=== PATIENT | female | born 2005 | race Caucasian/White ===

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

== ENCOUNTER 2023-02-02 13:28 | Inpatient (IN) | payer MEDICAID ==
[~2023-02-02] VITALS: Ht 162.6 cm; Wt 72.6 kg
[~2023-02-02 13:28] MED LIST changes: +LEVO-481 PO; +PANT40EC PO
[2023-02-02 13:34] VITALS: BP 91/60
--- NOTE | 2023-02-02 14:20 | NUR ---
PT WHEELCHAIR ASSIST TO BED 01
--- NOTE | 2023-02-02 14:27 | NUR ---
Patient being evaluated by physician at bedside.
--- NOTE | 2023-02-02 14:38 | NUR ---
REPORTS VOMITING BLOOD, EMESIS ON ARRIVAL WAS JUST CLEAR BLUISH LIQUID THAT PT DRANK
[2023-02-02] MEDS ORDERED: METOCLOPRAMIDE 10 MG/2 ML INJ VIAL IVP ONE (14:40)
[2023-02-02] MEDS ORDERED: NACL 0.9% 1,000 ML IV ONE (14:40)
--- NOTE | 2023-02-02 14:45 | NUR ---
Patient ambulated to restroom with steady gait.
--- NOTE | 2023-02-02 14:49 | NUR ---
IV started, blood work obtained, handed to lab at bedside.
[2023-02-02 14:56] LABS: HEMOGLOBIN 12.4 g/dL (12.0-16.0); MEAN CORPUSCULAR HEMOGLOBIN 30 pg (27-31); MEAN CORPUSCULAR HGB CONC 33 g/dL (33-37); MEAN CORPUSCULAR VOLUME 89.1 fL (80-94); PLATELET COUNT (AUTO) 310 K/uL (140-450); RED BLOOD CELL COUNT(AUTO) 4.15 MIL/uL (4.20-5.40); RED CELL DISTRIBUTION WIDTH 13.3 % (11.6-13.7); WHITE BLOOD COUNT (AUTO) 22.2 K/uL (4.5-11.0)
[2023-02-02 15:14] LABS: LYMPHOCYTES % (MANUAL) 2 % (20-46); MONOCYTES % (MANUAL) 3 % (5-12)
[2023-02-02 15:19] LABS: ALBUMIN 4.2 g/dL (3.4-5.0); ANION GAP 17.8 (8-16); ASPARTATE AMINOTRANSFERASE 17 U/L (15-37); CARBON DIOXIDE 21.2 mmol/L (21-32); CHLORIDE 104 mmol/L (98-107); CREATININE 0.7 mg/dL (0.6-1.3); GFR ARICAN-AMERICAN 139 mL/min (>90); GLUCOSE 158 mg/dL (74-106); LIPASE 35 U/L (73-393); SODIUM SERUM 140 mmol/L (136-145); TOTAL BILIRUBIN 0.5 mg/dL (0.0-1.0); UREA NITROGEN, BLOOD 10 mg/dL (7-18)
[2023-02-02] MEDS ORDERED: ONDANSETRON 4 MG/2 ML VIAL IVP ONE (15:40)
--- NOTE | 2023-02-02 16:05 | NUR ---
AMBULATES TO BR WITH STEADY GAIT, "ZOFRAN MIGHT NOT HELP"
[2023-02-02] MEDS ORDERED: HALOPERIDOL IM 5 MG/ML VIAL IVP ONE (16:25)
[2023-02-02 16:34] LABS: APPEARANCE,URINE CLEAR (CLEAR); COLOR,URINE YELLOW (YELLOW); PH,URINE 8.5 (5.0-9.0)
[2023-02-02 16:35] LABS: BILIRUBIN,URINE NEGATIVE (NEGATIVE); BLOOD, URINE NEGATIVE (NEGATIVE); UGLUCOSE NEGATIVE (NEGATIVE)
[2023-02-02 16:36] LABS: LEUKOCYTE ESTERASE ,URINE NEGATIVE (NEGATIVE); NITRITE, URINE NEGATIVE (NEGATIVE)
--- NOTE | 2023-02-02 16:51 | NUR ---
ADMITS TO SWALLOWING SOME WATER WHEN RINSING MOUTH IN THE BATHROOM. 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
--- NOTE | 2023-02-02 17:21 | NUR ---
Dr. Yip re-evaluating patient at bedside.
--- NOTE | 2023-02-02 17:37 | NUR ---
Med rec complete
[2023-02-02] MEDS ORDERED: DEXT 5% /NACL 0.9% 1,000 ML IV ONE (18:25)
--- NOTE | 2023-02-02 19:20 | NUR ---
Report given to PATRICK Robertson for transfer of care.
[2023-02-02] MEDS ORDERED: DOCUSATE SODIUM 100 MG GELCAP PO PRN (20:10)
[2023-02-02] MEDS ORDERED: DEXT 5% /NACL 0.9% 1,000 ML IV SCH (20:10)
[2023-02-02] MEDS ORDERED: ONDANSETRON 4 MG/2 ML VIAL IM/IVP PRN (20:10)
[2023-02-02] MEDS ORDERED: guaiFENesin DM 200/20 MG-10 ML 10 ML UDC PO PRN (20:10)
[2023-02-02] MEDS ORDERED: ZOLPIDEM 5 MG TAB PO PRN (20:10)
[2023-02-02] MEDS ORDERED: HYDROcodone/APAP 7.5/325 MG 1 TAB PO PRN (20:10)
[2023-02-02] MEDS ORDERED: ACETAMINOPHEN 325 MG TAB PO PRN (20:10)
[2023-02-02] MEDS ORDERED: POTASSIUM CHLORIDE 40 MEQ, LIDOCAINE MPF 1% 25 MG in NACL 0.9% 250 ML IV PRN (20:15)
[2023-02-02 20:39] LABS: PROTHROMBIN TIME 11.2 secs (10.8-13.4)
[2023-02-02 20:49] LABS: CHOL/HDL RATIO 2.6 (1-4.5); FREE T4 (FREE THYROXINE) 1.22 ng/dL (0.76-1.46); MAGNESIUM 1.6 mg/dL (1.8-2.4); PHOSPHORUS 1.4 mg/dL (2.5-4.9); THYROID STIMULATING HORMONE 1.25 uIU/mL (0.34-3.74)
--- NOTE | 2023-02-02 21:08 | NUR ---
pt to CT via adi
--- NOTE | 2023-02-02 21:20 | NUR ---
Patient will be admitted to care of Janina. Admited to Med Surg. Will go to [id number]. Belongings list completed. Report to Renetta GOMEZ.
[2023-02-02 21:30] VITALS: BP 125/88
--- NOTE | 2023-02-02 21:30 | NUR ---
RECEIVED PT IN BED FROM ER AWAKE, ALERT AND ORIENTED X 4. DENIES PAIN AT THIS TIME. NO NAUSEA NOR VOMITING NOTED AT THIS TIME. IVF INFUSING WELL ORDERED. SKIN WARM AND DRY TO TOUCH. BED IN THE LOWEST AND LOCKED POSITION FOR SAFETY, CALL LIGHT GIVEN TO PT WITH INSTRUCTION ON USE, RETURN DEMONSTRATION DONE.
[2023-02-02] MEDS: POTASSIUM CHLORIDE 10 MEQ TABER PO PRN (21:51)
[2023-02-03 04:00] VITALS: BP 98/54
[2023-02-03 05:24] LABS: BASOPHILS % (AUTO) 0.2 % (0.0-2.0); HEMATOCRIT 33.6 % (36-48); HEMOGLOBIN 11.1 g/dL (12.0-16.0); LYMPHOCYTES % (AUTO) 9.7 % (20.5-51.1); MEAN CORPUSCULAR HEMOGLOBIN 30 pg (27-31); MEAN CORPUSCULAR HGB CONC 33 g/dL (33-37); MEAN CORPUSCULAR VOLUME 89.7 fL (80-94); MONOCYTES # (AUTO) 1.8 K/uL (0.8-1.0); MONOCYTES % (AUTO) 8.9 % (1.7-9.3); NEUTROPHILS # (AUTO) 16.5 K/uL (1.8-7.7); NEUTROPHILS % (AUTO) 81.2 % (42.2-75.2); PLATELET COUNT (AUTO) 261 K/uL (140-450); RED BLOOD CELL COUNT(AUTO) 3.74 MIL/uL (4.20-5.40); RED CELL DISTRIBUTION WIDTH 13.6 % (11.6-13.7); WHITE BLOOD COUNT (AUTO) 20.3 K/uL (4.5-11.0)
[2023-02-03 05:36] LABS: ANION GAP 11.5 (8-16); CREATININE 0.5 mg/dL (0.6-1.3); POTASSIUM 3.5 mmol/L (3.5-5.1)
--- NOTE | 2023-02-03 08:00 | NUR ---
received patient resting in bed not thierry nay form of distress, denies any nausea and vomiting at this time, states she feels a lot better, shift assessment done and documented, plan of care discussed, will continue to monitor.
--- NOTE | 2023-02-03 08:51 | NUR ---
PATIENT HAS BEEN SCREENED AND CATEGORIZED HIGH NUTRITION RISK. PATIENT WILL BE SEEN WITHIN 1-2 DAYS OF ADMISSION. 02/03/23-02/04/23 [facility] REFERRAL RECEIVED FOR VOMITING X3 DAYS ON 02/03/[address]
[2023-02-03] MEDS: PANTOPRAZOLE 40 MG TABEC PO SCH (09:32)
--- NOTE | 2023-02-03 13:06 | NUR ---
02/03/23 RD INITIAL ASSESSMENT COMPLETED PLEASE REFER TO NUTRITION ASSESSMENT UNDER CARE ACTIVITY FOR ESTIMATED NUTRITIONAL NEEDS. 1. CONTINUE NPO DIET TOLERATED AND ONCE MEDICALLY APPROPRIATE ADVANCE TO CLEAR LIQUID DIET. 2. RD TO FOLLOW-UP 3-5 DAYS, MODERATE RISK SOILA MONTGOMERY, RD
[2023-02-03 16:00] VITALS: BP 96/60
[2023-02-03 17:54] LABS: BARBITURATE, URINE NEGATIVE ng/ml (NEG <=200); BENZODIAZEPINE, URINE NEGATIVE ng/mL (NEG <=200); CANNABINOID, URINE POSITIVE ng/mL (NEG <=50); COCAINE, URINE NEGATIVE ng/mL (NEG <=300); OPIATE, URINE POSITIVE ng/mL (NEG <=2000); PHENCYCLIDINE SCREEN,URINE NEGATIVE ng/mL (NEG <=25)
--- NOTE | 2023-02-03 19:30 | NUR ---
RECEIVED REPORT FROM DAY SHIFT RN FOR CONTINUITY OF CARE. PT IS AWAKE AND ALERT. RESTING IN BED ON RA. PT HAS LEFT AC 20 GAUGE SALINE LOCK. POC DISCUSSED. WILL CONTINUE TO MONITOR THE PT.
[2023-02-03 20:00] VITALS: BP 100/70
--- NOTE | 2023-02-04 | NUR ---
CHECKED ON PT. PT IS AWAKE. NOT IN ANY DISTRESS. PT DENIES ANY NAUSEA/VOMITING. NO COMPLAINS FROM THE PT.
[2023-02-04 04:00] VITALS: BP 90/60
--- NOTE | 2023-02-04 04:05 | NUR ---
VITAL SIGNS TAKEN AND STABLE. PT DENIES ANY PAIN. PT HAS NOT HAD ANY NAUSEA VOMITING DURING SHIFT.
[2023-02-04 05:34] LABS: BASOPHILS # (AUTO) 0.1 K/uL (0.00-0.22); BASOPHILS % (AUTO) 0.5 % (0.0-2.0); EOSINOPHILS # (AUTO) 0.1 K/uL (0-0.4); EOSINOPHILS % (AUTO) 0.9 % (0.0-4.0); HEMATOCRIT 34.5 % (36-48); HEMOGLOBIN 11.5 g/dL (12.0-16.0); LYMPHOCYTES # (AUTO) 3.3 K/uL (2.5-16.5); LYMPHOCYTES % (AUTO) 28.8 % (20.5-51.1); MEAN CORPUSCULAR HEMOGLOBIN 30 pg (27-31); MEAN CORPUSCULAR HGB CONC 33 g/dL (33-37); MEAN CORPUSCULAR VOLUME 90.3 fL (80-94); MONOCYTES # (AUTO) 1.1 K/uL (0.8-1.0); MONOCYTES % (AUTO) 9.7 % (1.7-9.3); NEUTROPHILS # (AUTO) 6.9 K/uL (1.8-7.7); NEUTROPHILS % (AUTO) 60.1 % (42.2-75.2); PLATELET COUNT (AUTO) 246 K/uL (140-450); RED BLOOD CELL COUNT(AUTO) 3.83 MIL/uL (4.20-5.40); RED CELL DISTRIBUTION WIDTH 13.5 % (11.6-13.7); WHITE BLOOD COUNT (AUTO) 11.6 K/uL (4.5-11.0)
[2023-02-04 06:05] LABS: ANION GAP 14.8 (8-16); CARBON DIOXIDE 23.5 mmol/L (21-32); CREATININE 0.6 mg/dL (0.6-1.3); POTASSIUM 3.3 mmol/L (3.5-5.1)
[2023-02-04 07:08] LABS: T4 (THYROXINE) 9.6 ug/dL (4.5-12.0)
--- NOTE | 2023-02-04 07:10 | NUR ---
ENDORSED PT TO DAY SHIFT RN FOR CONTINUITY OF CARE. PT IS STABLE.
[2023-02-04] MEDS: PANTOPRAZOLE 40 MG TABEC PO SCH (09:15)
[2023-02-04] MEDS: POTASSIUM CHLORIDE 10 MEQ TABER PO PRN (09:15)
--- NOTE | 2023-02-04 12:42 | NUR ---
PATIENT DISCHARGED HOME ACCOMPANIED BY FAMILY. STABLE UPON DISCHARGED.
== END 2023-02-04 12:37 | disposition home or self-care (01) | DRG 249 ==
LOC: MED 13:28 → MMU 19:19 → MTU 20:13
PROVIDERS: ADMIT Family Medicine; ATTEND Family Medicine
DX: K52.9 Noninfective gastroenteritis and colitis, unspecified (principal); G93.41 Metabolic encephalopathy; R65.10 Systemic inflammatory response syndrome (SIRS) of non-infectious origin without acute organ dysfunction; E83.39 Other disorders of phosphorus metabolism; R56.9 Unspecified convulsions; E87.6 Hypokalemia; E83.42 Hypomagnesemia; D64.9 Anemia, unspecified; F12.90 Cannabis use, unspecified, uncomplicated; Z20.822 Contact with and (suspected) exposure to COVID-19
CPT/HCPCS: 36415; 71045; 80048; 80053; 80305; 81003; 82150; 83036; 83690; 83735; 83880; 84100; 84436; 84439; 84443; 84479; 84484; 85025; 85610; 85730; 87081; 96361; 96374; 96375; 99285; J1630; J2405; J2765; Q0092

== ENCOUNTER 2023-03-09 09:20 | Emergency (ER) | payer MEDICAID ==
[~2023-03-09] VITALS: Ht 167.6 cm; Wt 72.6 kg
[~2023-03-09 09:20] MED LIST changes: -BEN10 PO; -LEVO-481 PO; -MAG-27 PO
[2023-03-09 09:26] VITALS: BP 123/87; PULSE 89; RESP 20; TEMP 98.7; O2SAT 95
--- NOTE | 2023-03-09 09:35 | NUR ---
PT AMBULATED TO BED 12
[2023-03-09] MEDS ORDERED: METOCLOPRAMIDE 10 MG/2 ML INJ VIAL IVP ONE (09:40)
[2023-03-09] MEDS ORDERED: diphenhydrAMINE 50 MG/ML VIAL IVP ONE (09:40)
[2023-03-09] MEDS ORDERED: NACL 0.9% 1,000 ML IV SCH (09:40)
--- NOTE | 2023-03-09 09:40 | NUR ---
AT THE BEDSIDE
[2023-03-09] MEDS ORDERED: LORazepam 2 MG/ML VIAL IVP ONE (09:45)
[2023-03-09] MEDS ORDERED: LORazepam 2 MG/ML VIAL ONE (09:46)
--- NOTE | 2023-03-09 09:54 | NUR ---
PT HAD SEIZURE-LIKE EPISODE, PT WAS UNRESPONSIVE FOR APPROX 15-20 SECS AND HAD JERKING MOVEMENTS. SPO2 WAS 96% ON ROOM AIR. MD AT THE BEDSIDE, PT MEDICATED PER MD ORDERS.
[2023-03-09] MEDS ORDERED: HALOPERIDOL IM 5 MG/ML VIAL IVP ONE (09:55)
--- NOTE | 2023-03-09 10:03 | NUR ---
X-Ray at bedside.
--- NOTE | 2023-03-09 10:03 | NUR ---
Note yesenia in [facility] - 03/09/23 at 1003 by [id number] Ultrasound at bedside. Addendum: 03/09/23 at 1003 by [id number] Wilton patterson in [facility] - 03/09/23 at 1003 by [id number] X-Ray at bedside.
[2023-03-09 10:49] LABS: ALBUMIN 4.5 g/dL (3.4-5.0); CARBON DIOXIDE 23.1 mmol/L (21-32); CREATININE 0.7 mg/dL (0.6-1.3); POTASSIUM 3.1 mmol/L (3.5-5.1); TOTAL BILIRUBIN 0.6 mg/dL (0.0-1.0)
[2023-03-09 10:50] LABS: BASOPHILS # (AUTO) 0.1 K/uL (0.00-0.22); BASOPHILS % (AUTO) 0.5 % (0.0-2.0); EOSINOPHILS # (AUTO) 0.1 K/uL (0-0.4); EOSINOPHILS % (AUTO) 0.3 % (0.0-4.0); HEMATOCRIT 38.3 % (36-48); HEMOGLOBIN 12.5 g/dL (12.0-16.0); LYMPHOCYTES # (AUTO) 1.7 K/uL (2.5-16.5); LYMPHOCYTES % (AUTO) 10.2 % (20.5-51.1); MEAN CORPUSCULAR HEMOGLOBIN 29 pg (27-31); MEAN CORPUSCULAR HGB CONC 33 g/dL (33-37); MEAN CORPUSCULAR VOLUME 89.7 fL (80-94); MONOCYTES # (AUTO) 0.9 K/uL (0.8-1.0); MONOCYTES % (AUTO) 5.1 % (1.7-9.3); NEUTROPHILS % (AUTO) 83.9 % (42.2-75.2); PLATELET COUNT (AUTO) 263 K/uL (140-450); RED BLOOD CELL COUNT(AUTO) 4.27 MIL/uL (4.20-5.40); RED CELL DISTRIBUTION WIDTH 13.7 % (11.6-13.7); WHITE BLOOD COUNT (AUTO) 16.7 K/uL (4.5-11.0)
[2023-03-09] MEDS ORDERED: KCL 20 MEQ IN 100 mL PREMIX 200 ML IV ONE (11:15)
[2023-03-09] MEDS ORDERED: NACL 0.9% 1,000 ML IV ONE (11:15)
--- NOTE | 2023-03-09 11:18 | NUR ---
Patient appears to be resting comfortably in bed. Vital Signs within normal limits. Respirations even and unlabored. CALL LIGHT WITHIN REACH.
--- NOTE | 2023-03-09 12:00 | NUR ---
PT CURRENTLY SLEEPING. NO SIGNS OF DISTRESS NOTED. WOKE PT TO ATTEMPT URINATION, PT STATED SHE DID NOT HAVE TO GO.
--- NOTE | 2023-03-09 12:45 | NUR ---
PT AMBULATED TO BATHROOM, STATED WAS UNABLE TO URINATE
--- NOTE | 2023-03-09 14:23 | NUR ---
PT TAKEN TO CT VIA SHRUTHI
[2023-03-09] MEDS ORDERED: KETOROLAC 15 MG/ML VIAL IVP ONE (15:05)
[2023-03-09 15:30] VITALS: BP 101/67; PULSE 63; RESP 18; TEMP 98.6; O2SAT 100
[2023-03-09 15:45] LABS: APPEARANCE,URINE CLEAR (CLEAR); BILIRUBIN,URINE NEGATIVE (NEGATIVE); BLOOD, URINE TRACE-I (NEGATIVE); COLOR,URINE YELLOW (YELLOW); LEUKOCYTE ESTERASE ,URINE NEGATIVE (NEGATIVE); NITRITE, URINE NEGATIVE (NEGATIVE); UGLUCOSE NEGATIVE (NEGATIVE)
[2023-03-09 15:51] LABS: RBC,URINE 0-5 /HPF (0-5)
[2023-03-09] MEDS ORDERED: ONDA-188 PO (16:28)
[2023-03-09] MEDS ORDERED: KETOROLAC 15 MG/ML VIAL ONE (16:34)
== END 2023-03-09 17:28 | disposition home or self-care (01) ==
LOC: MED 09:20
DX: R11.2 Nausea with vomiting, unspecified (principal); E86.0 Dehydration; E87.6 Hypokalemia; F12.90 Cannabis use, unspecified, uncomplicated; R10.9 Unspecified abdominal pain; Z79.899 Other long term (current) drug therapy
CPT/HCPCS: 36415; 71045; 74176; 80053; 81001; 81025; 83690; 84702; 85025; 96361; 96365; 96366; 96375; 99291; J1200; J1630; J1885; J2060; J2765; J3480; J7030; Q0092

== ENCOUNTER 2023-05-16 18:33 | Emergency (ER) | payer MEDICAID ==
[~2023-05-16] VITALS: Ht 160 cm; Wt 68.0 kg
[2023-05-16 18:35] VITALS: BP 104/70; PULSE 102; RESP 18; TEMP 98; O2SAT 98
[2023-05-16 19:09] LABS: BASOPHILS # (AUTO) 0.1 K/uL (0.00-0.22); BASOPHILS % (AUTO) 0.7 % (0.0-2.0); EOSINOPHILS # (AUTO) 0.1 K/uL (0-0.4); EOSINOPHILS % (AUTO) 1.6 % (0.0-4.0); HEMATOCRIT 35.6 % (36-48); HEMOGLOBIN 11.7 g/dL (12.0-16.0); LYMPHOCYTES # (AUTO) 2.6 K/uL (2.5-16.5); LYMPHOCYTES % (AUTO) 28.7 % (20.5-51.1); MEAN CORPUSCULAR HEMOGLOBIN 29 pg (27-31); MEAN CORPUSCULAR HGB CONC 33 g/dL (33-37); MEAN CORPUSCULAR VOLUME 87.9 fL (80-94); MONOCYTES # (AUTO) 0.7 K/uL (0.8-1.0); MONOCYTES % (AUTO) 7.5 % (1.7-9.3); NEUTROPHILS # (AUTO) 5.6 K/uL (1.8-7.7); NEUTROPHILS % (AUTO) 61.5 % (42.2-75.2); PLATELET COUNT (AUTO) 249 K/uL (140-450); RED BLOOD CELL COUNT(AUTO) 4.05 MIL/uL (4.20-5.40); RED CELL DISTRIBUTION WIDTH 14.5 % (11.6-13.7); WHITE BLOOD COUNT (AUTO) 9.1 K/uL (4.5-11.0)
[2023-05-16 19:24] LABS: ANION GAP 12.3 (8-16); CALCIUM 8.5 mg/dL (8.5-10.1); CARBON DIOXIDE 25.2 mmol/L (21-32); CREATININE 0.8 mg/dL (0.6-1.3); POTASSIUM 3.5 mmol/L (3.5-5.1)
== END 2023-05-16 20:10 | disposition home or self-care (01) ==
LOC: MED 18:33
DX: R55 Syncope and collapse (principal); Z79.899 Other long term (current) drug therapy
CPT/HCPCS: 36415; 80048; 81025; 84484; 85025; 93005; 99284

== ENCOUNTER 2023-06-26 10:16 | Emergency (ER) | payer MEDICAID ==
[~2023-06-26] VITALS: Ht 160 cm; Wt 68.0 kg
[2023-06-26 10:24] VITALS: BP 116/73; PULSE 83; RESP 20; TEMP 97.6; O2SAT 98
[2023-06-26] MEDS ORDERED: NACL 0.9% 1,000 ML IV ONE ×2 (10:30→13:45)
[2023-06-26] MEDS ORDERED: diphenhydrAMINE 50 MG/ML VIAL IVP ONE (10:30)
[2023-06-26] MEDS ORDERED: HALOPERIDOL IM 5 MG/ML VIAL IVP ONE (10:30)
[2023-06-26 11:10] LABS: HEMATOCRIT 36.2 % (36-48); HEMOGLOBIN 11.8 g/dL (12.0-16.0); MEAN CORPUSCULAR HEMOGLOBIN 29 pg (27-31); MEAN CORPUSCULAR HGB CONC 33 g/dL (33-37); MEAN CORPUSCULAR VOLUME 87.3 fL (80-94); PLATELET COUNT (AUTO) 240 K/uL (140-450); RED BLOOD CELL COUNT(AUTO) 4.15 MIL/uL (4.20-5.40); RED CELL DISTRIBUTION WIDTH 14.9 % (11.6-13.7); WHITE BLOOD COUNT (AUTO) 17.7 K/uL (4.5-11.0)
[2023-06-26 11:24] LABS: ANION GAP 16.8 (8-16); CALCIUM 8.6 mg/dL (8.5-10.1); CARBON DIOXIDE 20.4 mmol/L (21-32); CREATININE 0.7 mg/dL (0.6-1.3); POTASSIUM 3.2 mmol/L (3.5-5.1); TOTAL BILIRUBIN 0.2 mg/dL (0.0-1.0); TOTAL PROTEIN, SERUM 7.3 g/dL (6.4-8.2)
[2023-06-26 11:31] LABS: BASOPHILS % (MANUAL) 0 % (0-2); EOSINOPHILS % (MANUAL) 0 % (0-4); LYMPHOCYTES % (MANUAL) 12 % (20-46); MONOCYTES % (MANUAL) 3 % (5-12); PLATELET ESTIMATE ADEQUATE
[2023-06-26 12:33] LABS: APPEARANCE,URINE CLEAR (CLEAR); BILIRUBIN,URINE NEGATIVE (NEGATIVE); BLOOD, URINE 3+ (NEGATIVE); COLOR,URINE YELLOW (YELLOW); LEUKOCYTE ESTERASE ,URINE NEGATIVE (NEGATIVE); NITRITE, URINE NEGATIVE (NEGATIVE); PH,URINE 5.5 (5.0-9.0); PROTEIN,URINE NEGATIVE (NEGATIVE); UGLUCOSE NEGATIVE (NEGATIVE); UROBILINOGEN,URINE 0.2 EU/dL (0.2 - 1)
[2023-06-26] MEDS ORDERED: METOCLOPRAMIDE 10 MG/2 ML INJ VIAL IVP ONE (12:35)
[2023-06-26 12:52] LABS: BACTERIA,URINE 1+ /HPF (None Seen); RBC,URINE 11-20 (MOD) /HPF (0-5); WBC,URINE 0-5 /HPF (0-5)
[2023-06-26] MEDS ORDERED: CAPS42.514 TP (13:17)
[2023-06-26] MEDS ORDERED: ONDA-188 SL (13:17)
[2023-06-26] MEDS ORDERED: FAMO-92 PO (13:17)
[2023-06-26 15:09] VITALS: BP 116/73; PULSE 79; RESP 20; TEMP 97.7; O2SAT 98
[2023-06-26 17:42] LABS: AMPHETAMINE, URINE NEGATIVE ng/ml (NEG <=1000); BARBITURATE, URINE NEGATIVE ng/ml (NEG <=200); BENZODIAZEPINE, URINE NEGATIVE ng/mL (NEG <=200); CANNABINOID, URINE POSITIVE ng/mL (NEG <=50); COCAINE, URINE NEGATIVE ng/mL (NEG <=300); OPIATE, URINE NEGATIVE ng/mL (NEG <=2000); PHENCYCLIDINE SCREEN,URINE NEGATIVE ng/mL (NEG <=25)
== END 2023-06-26 15:08 | disposition home or self-care (01) ==
LOC: MED 10:16
DX: R11.2 Nausea with vomiting, unspecified (principal); R10.13 Epigastric pain; Z79.899 Other long term (current) drug therapy
CPT/HCPCS: 36415; 70450; 74022; 80053; 80305; 81001; 83605; 83690; 84703; 85025; 93005; 96361; 96374; 96375; 99285; J1200; J1630; J2765

== ENCOUNTER 2023-06-26 19:36 | Emergency (ER) | payer MEDICAID ==
[~2023-06-26] VITALS: Ht 160 cm; Wt 82.6 kg
[~2023-06-26 19:36] MED LIST changes: +CAPS42.514 TP; +FAMO-92 PO; +ONDA-188 SL
[2023-06-26 19:53] VITALS: BP 128/76; PULSE 64; RESP 14; TEMP 98.3; O2SAT 99
[2023-06-26 21:20] VITALS: BP 128/76; PULSE 64; RESP 14; TEMP 98.3; O2SAT 99
== END 2023-06-26 21:20 | disposition home or self-care (01) ==
LOC: MED 19:36
DX: K29.70 Gastritis, unspecified, without bleeding (principal); K21.9 Gastro-esophageal reflux disease without esophagitis; Z79.899 Other long term (current) drug therapy
CPT/HCPCS: 99281